=== PATIENT | female | born 1980 ===

== ENCOUNTER 2025-05-22 09:17 | Outpatient (AMB) | payer MEDICAID, SELFPAY ==
--- NOTE | 2025-05-22 09:19 | GYNCLNT_ITS ---
Vital Signs 05/22/25 09:24 Height 1.7 m Height Method Stated Weight 83.007 kg Weight Measurement Method Standing Scale BMI 28.6 BP 124/81 Blood Pressure Source Automatic Cuff Blood Pressure Location Right Upper Arm Position Sitting Respiration 18 Pulse 68 Pulse Source Monitor Temp 97.7 F Temp Source Temporal Artery Scan Pulse Oximetry (%) 98 Oxygen Delivery Method Room Air Allergies/Home Meds Allergies & Medications Allergies No Known Allergies Allergy (Verified 05/22/25 09:27) Medication Reconciliation semaglutide (weight loss) 1 mg/0.5 mL subcutaneous pen injector (Wegovy) 1 mg subcut QWEEK 05/22/25 [History Confirmed 05/22/25] Intake Visit Data Collection New Patient or Established: Established Patient (seen at [facility] within 3 years) Reason for Visit:: REFERRAL Seen by Clinical Staff ONLY (RN/MA): No Crude Oil Driver Required: No Do You Feel Safe at Home: Yes Authorities Contacted: N/A PCP or OBGYN visit in last 3 months: No Hx Now: No Are you currently on any form of Control: No Last menstrual period: 04/30/25 Pain Present Currently: No Pain Scale Used: Marina-Bird/Numerical Pain scale:: 0 Smoking Status Smoking Status: Never smoker Immunizations Flu Vaccine in the Last 12 Months: No Flu Vaccine Exclusion Criteria: No Exclusion Criteria Mechanic Recovery history Mechanic Recovery History Menstrual regularity: irregular Flow: normal Monthly: No Age at menarche: 13 Currently sexually active: Yes TALENT ASSISTANT: Past Medical History Past Medical History: No Hx Renal Disease, No Hx Diabetes Mellitus Type 1 and No Hx Diabetes Mellitus Type 2 Questionnaires Covid-19 Vaccine Questionnaire Has patient been vacinated for Covid-19 Have you been vacinated for Covid-19: No PHQ-9 PHQ-2 Over the last 2 weeks, how often have you been bothered by any of the following problems? 1. Little interest or pleasure in doing things: not at all 2. Feeling down, depressed, or hopeless: not at all Total score: 0 PHQ-9 3. Trouble falling or staying asleep, or sleeping too much: Not at all 4. Feeling tired or having little energy: Not at all 5. Poor appetite or overeating: Not at all 6. Feeling bad about yourself - or that you are a failure or have let yourself or your family down: Not at all 7. Trouble concentrating on things, such as reading the newspaper or watching television: Not at all 8. Moving or speaking so slowly that other people could have noticed? - Or the opposite - being so fidgety or restless that you have been moving around a lot more than usual: not at all 9. Thoughts that you would be better off or of hurting yourself in some way: Not at all Total score: 0 If you checked off any problems, how difficult have these problems made it for you to do your work, take care of things at home, or get along with other people?: not difficult at all Source: Developed by Drs. Louie Cedillo, Samira Strong, Chino Mckeon and colleagues, with an educational yu from [employer]. Depression screen completed yes Social History Living Situation History Marital Status: Single Lives With: Children Housing: House Tobacco History Smoking Status: Never smoker Second Hand Smoke Exposure: No Alcohol History Alcohol Intake: Never Domestic Abuse History Do You Feel Safe at Home: Yes History of Present Illness HPI Narrative Jacqueline Ybarra presents with irregular periods for the past two years, describing episodes of bleeding for three days, followed by cessation, and then spotting with small black clots occurring approximately one week later. She experienced one episode of continuous bleeding lasting an entire month, which was subsequently followed by spotting. control was prescribed to help regulate her periods, but she experienced severe side effects and discontinued this treatment. After starting Wegovy in September, the patient did not have a period for seven months until April. When her period returned in April, it was heavy with coagulation and lasted for two weeks, followed by an additional week of spotting. She has lost 35 pounds while on Wegovy and reports feeling better overall, though she continues to experience occasional aches and fatigue. She is a 44-year-old female with a medical history of HLD, GERD, palpitations, vitamin D deficiency, and bilateral ovarian cysts who was referred by her primary care provider for endocervical cysts and irregular menses. ROS: General: Positive for occasional aches and fatigue. Diagnostic Test Results and Labs: - Pelvic ultrasound (01-30-2025): Normal-sized uterus with 1.1 cm dilated endocervical cyst, 1.6 cm simple cyst in right ovary, 1.8 cm simple cyst in left ovary. No other adnexal cystic structures or masses present. Exam General General Appearance: alert, in no apparent distress and healthy appearing Head Head exam: atraumatic Neck Neck exam: Present normal inspection and trachea midline Chest Chest inspection: Present normal inspection and symmetric chest wall rise External exam: Present normal external exam; Absent tenderness Neuro Neurological exam: Present oriented X3 Psych Psychiatric exam: Present normal affect and normal mood Office Procedures [facility] LOC & Office Proc's Nursing/Assessment Patient Status: Established Patient OB Clinic Nursing Assessment: Medication Reconciliation, Update PMH in EMR and Vital Signs OB Clinic Coordination of Care: Complex Care and Chronic Disease 1-5, Education Complex Pt/Fam, Consent,records obtained, informed consent, Lab and Imaging orders, Results/Orders obtained and Staff clarify orders Established Patient Charge Established Patient Point Assignment: 110 Established Patient Point Charge: EP Level 3 (80-115) Assessment & Plan Diagnosis / Problem List (1) Irregular menstruation, unspecified: Status: Acute (2) Other specified noninflammatory disorders of cervix uteri: Status: Acute (3) Unspecified ovarian cyst, unspecified side: Status: Acute Plan Irregular Menses: - 44-year-old female with irregular menstrual patterns for the past two years. - Episodes of bleeding for three days followed by spotting with small black clots a week later. - History of continuous bleeding followed by spotting, then amenorrhea for seven months after starting Wegovy. - Recent heavy, coagulated period lasting two weeks followed by a week of spotting. - May be related to perimenopause or influenced by significant weight loss from Wegovy. Plan: - Wait 2-3 months to observe if periods become regular. - If periods do not regulate, obtain premenopause evaluation and hormone checks including DHEA. - Check thyroid function if not already done. Endocervical Cyst: - 1.1 cm dilated endocervical cyst demonstrated on pelvic ultrasound from 01-30-2025. - Benign finding not requiring surgical intervention at this time. Plan: - Monitor annually with ultrasound. - Follow-up ultrasound recommended in July, six months after initial study, then annually. - No surgical intervention needed unless heavy periods develop. Bilateral Ovarian Cysts: - 1.6 cm simple cyst in the right ovary and 1.8 cm simple cyst in the left ovary on pelvic ultrasound from 7-8-2025. - No other adnexal cystic structures or masses present. - Cysts considered benign and do not require surgical intervention. Plan: - Monitor annually with ultrasound. - Follow-up ultrasound recommended in July, six months after initial study, then annually. - No surgical intervention needed.
[2025-05-22 09:24] VITALS: BP 124/81; PULSE 68; RESP 18; TEMP 36.5; O2SAT 98; BMI 28.6
== END 2025-05-22 09:51 | disposition home or self-care (01) ==
PROVIDERS: Supervising Provider Obstetrics & Gynecology; Visit Provider Obstetrics & Gynecology
DX: N83.292 Other ovarian cyst, left side (principal); N83.291 Other ovarian cyst, right side; N88.8 Other specified noninflammatory disorders of cervix uteri; N92.6 Irregular menstruation, unspecified
CPT/HCPCS: 99213; G0463